=== PATIENT | male | born 1975 | race Caucasian/White ===

== ENCOUNTER 2019-06-09 22:49 | Emergency (ER) | payer OTHER, SELFPAY ==
[2019-06-09 23:05] VITALS: BP 126/80; PULSE 78; RESP 16; TEMP 37.1; O2SAT 97; BMI 21.6
--- NOTE | 2019-06-09 23:28 | ED_ITS ---
HPI - Psych General Chief Complaint: Psychiatric Symptoms Stated Complaint: Anxiety, psych symptoms Time Seen by Provider: 06/09/19 22:53 Source: patient and family Mode of arrival: Ambulatory Limitations: no limitations History of Present Illness HPI Narrative: 44-year-old male who is brought to the emergency department by his brother. Patient has a prior history of bipolar type 2 and psychosis. Has been on medications in the past but self discontinued these medicines several months ago. Denies any alcohol or drug abuse. Has had both voluntary and involuntary admissions to mental health facility in the past. Patient's brother states that he went to pick the patient up today when the patient's called him stating that she thought that the patient was acting paranoid. Patient's brother states that they have had this type of issue in the past. They did give him a dose of his prescribed medication earlier today which seems to have calmed the patient down somewhat but they thought that potentially he was having more problems again. Patient states that his mind is ?racing? he states that he sometimes hears voices. At 1 point mention that he sometimes sees objects and then another point in the interview denied this. No fevers. Has been having some anxiety in problems sleeping. Patient's brother states that the patient was stating that the TV was talking to him and that text poor directed at him. Patient denies any suicidal ideation. No homicidal ideation. Related Data Previous Rx's Medication Instructions Recorded olanzapine [Zyprexa] 10 mg PO DAILY #7 tab 06/10/19 Allergies Allergy/AdvReac Type Severity Reaction Status Date / Time No Known Drug Allergies Allergy Verified 06/09/19 23:35 Review of Systems Constitutional Constitutional: Denies fever(s) and Denies headache(s) ENT Ears, Nose, Mouth, and Throat: Denies headache(s) Cardiovascular Cardiovascular: Denies chest pain and Denies dyspnea Respiratory Respiratory: Denies dyspnea Gastrointestinal Gastrointestinal: Denies abdominal pain Musculoskeletal Musculoskeletal: Denies myalgias and Denies arthralgias Integumentary/Breasts Skin/Breast: Denies rash Neurologic Neurologic: Reports behavioral changes, Denies headache(s) and Denies memory loss Psychiatric Psychiatric: Reports abnormal sleep pattern, Reports anxiety, Reports behavioral changes, Reports change in appetite, Denies depression, Reports difficulty concentrating, Reports auditory hallucinations, Denies irritability, Denies memory loss, Denies panic attacks, Reports paranoia, Reports visual hallucinations, Denies tactile hallucinations, Denies homicidal ideation and Denies suicidal ideation Patient History Medical History Bipolar 2 disorder (Acute) Psychosis (Acute) alcohol intake frequency: holidays/special occasions only Substance Use Type: does not use Exam Initial Vital Signs Initial Vital Signs: Vital Signs Temperature 98.7 F 06/09/19 23:05 Pulse Rate 78 06/09/19 23:05 Respiratory Rate 16 06/09/19 23:05 Blood Pressure 126/80 06/09/19 23:05 Pulse Oximetry 97 06/09/19 23:05 Const General: cooperative and comfortable Limitations: mental status not altered Resp Effort & Inspection: normal respiratory effort Cardio Rate: regular rate Neuro General: alert, awake and oriented x3 Cognition: normal cognition Speech: speech normal Psych Appearance: grossly normal and well kempt Speech and Movement: speech and movement normal, not agitated, speech not pressured and not restless Mood: anxious mood, paranoid and No angry Affect: No sad and indifferent Attitude: cooperative and not belligerent Thought Content: hallucinations, no homicidality and suicidality Scores GCS [place] coma scale eye opening: Spontaneous Arianne coma scale verbal response: Orientated [place] coma scale motor response: Obey commands [place] coma scale total score: 15 Course Orders Ordered: Discontinued Medications Olanzapine (Zyprexa Zydis) 10 mg PO NOW ONE Stop: 06/09/19 23:27 Last Admin: 06/09/19 23:33 Dose: 10 mg Documented by: LUCILLE Vital Signs Vital signs: Vital Signs - 8 hr 06/09/19 23:05 Temperature 98.7 F Pulse Rate 78 Respiratory Rate 16 Blood Pressure 126/80 Pulse Oximetry 97 MDM - Psych MDM Narrative Medical decision making narrative: Did admit to having hallucinations. He did admit to having paranoia. Denied suicidal homicidal ideation. Had a discussion with him and his brother about options to include admitting to mental health facility. They both felt that he did not need this currently. I feel that he would not meet criteria for an involuntary admission. Had a discussion with him regarding what symptoms were more prominent whether that would be anxiety and lack of sleep or paranoia and does appear that the paranoia was the main issue. Is given a dose of Zyprexa. He felt better afterwards. He was able to sleep. He did feel like that his mind had slow down. Does appear that he was fairly well-maintained on his prior prescription prior to him self discontinuing this medication. The plan will be is to discharge the patient home with his brother. They are okay with this. They are going to continue his current medications that he has a prescription for. Will give a short course of Zyprexa to use as needed until the medication he is currently on improves his symptoms. He has a follow-up with his mental health provider on Tuesday morning. They were encouraged to return to the emergency department for any new or worsening symptoms. Discharge Plan Departure Patient Disposition: Home Clinical Impression: Paranoia Instructions: Bipolar Disorder (Alternative Therapy), Bipolar Disorder Activity Restrictions/Additional Instructions: Recommend that you continue with your current prescription medications as directed. Keep your scheduled follow-up on Tuesday with your mental health provider. Return to the emergency department for any new or worsening symptoms Prescriptions: New olanzapine [Zyprexa] 10 mg tablet 10 mg PO DAILY Qty: 7 RF: 0
[2019-06-09] MEDS: OLANZapine ODT 10 MG TAB PO (23:33)
[2019-06-10 00:54] VITALS: BP 113/64; PULSE 75; RESP 15; O2SAT 97
== END 2019-06-10 00:58 | disposition home or self-care (01) ==
PROVIDERS: Emergency Provider Emergency Medicine; Family Provider Family Medicine
DX: F22 Delusional disorders (principal); F31.81 Bipolar II disorder
CPT/HCPCS: 99283